=== PATIENT | male | born 1975 | race Caucasian/White ===

== ENCOUNTER 2016-10-27 16:21 | Observation (INO) | payer SELFPAY ==
--- NOTE | ~2016-10-27 | EGD ---
EGD REPORT [facility] [address] [place] [place] [address] NAME: ISHAN SANTO : [birth year] STATUS : ADM Chucky PAT#: [id number] AGE: 41 ADM/REG DATE : 10/27/16 MR#: [id number] REPORT SERV DATE: 10/29/16 DICTATED BY: JUANIS MOHR DATE: 10/29/16 REPORT STATUS : Draft TRANSCRIBED BY: [facility] DATE: 10/29/16 [facility] Center Patient Name: Ishan Santo Date of : 1975 Attending MD: JUANIS MOHR, Procedure Date No Time: 10/29/2016 Procedure: Colonoscopy Indications: Generalized abdominal pain, Rectal bleeding, Follow-up of Crohn's disease, Diarrhea Medicines: Propofol per Anesthesia Complications: No immediate complications. Estimated blood loss: None. Procedure: Pre-Anesthesia Assessment: - ASA Grade Assessment: III - A patient with severe systemic disease. After I obtained informed consent, the scope was passed under direct vision. Throughout the procedure, the patient's blood pressure, pulse, and oxygen saturations were monitored continuously. The CF [id number] was introduced through the anus and advanced to 15 cm into the ileum. The colonoscopy was performed with ease. The patient tolerated the procedure well. The appendiceal orifice, terminal ileum and rectum were photographed. Findings: The perianal exam was abnormal. Findings include skin tags. The terminal ileum appeared normal. Several biopsies were obtained in the distal ileum and in the terminal ileum with cold forceps for histology. Estimated blood loss: none. Inflammation characterized by altered vascularity, congestion (edema), loss of vascularity and aphthous ulcerations was found in a continuous and circumferential pattern from the sigmoid colon to the cecum. This was graded as Mathew Score 1 (mild, with erythema, decreased vascular pattern, mild friability). Biopsies were taken with a cold forceps for histology of the right colon, transverse colon, and left colon and placed in three different bottles. Estimated blood loss: none. Inflammation characterized by congestion (edema), friability, loss of vascularity, mucus and aphthous ulcerations was found in a continuous and circumferential pattern in the rectum. This was graded as Mathew Score 2 (moderate, with marked erythema, absent vascular pattern, friability, erosions). Biopsies were taken with a cold forceps for histology. Estimated blood loss: none. Non-bleeding internal hemorrhoids were found during retroflexion and were Grade I (internal hemorrhoids that do not prolapse). Impression: - Perianal skin tags found on perianal exam. EGD REPORT [address] [place]. [address] NAME: ISHAN SANTO : [birth year] STATUS : ADM Chucky PAT#: [id number] AGE: 41 ADM/REG DATE : 10/27/16 MR#: [id number] REPORT SERV DATE: 10/29/16 DICTATED BY: JUANIS MOHR DATE: 10/29/16 REPORT STATUS : Draft TRANSCRIBED BY: [email or web address] DATE: 10/29/16 - The examined portion of the ileum was normal. - Inflammation was found from the sigmoid colon to the cecum consistent with ulcerative colitis. Biopsied. - Inflammation was found in the rectum consistent with ulcerative colitis. Biopsied. - Non-bleeding internal hemorrhoids. - Several biopsies were obtained distal ileum and terminal ileum. Recommendation: - Return patient to [facility] for ongoing care. - Regular diet. - Use prednisolone 20 mg IV Q 12 hours for 2 days. - Use Rowasa enemas 1 per rectum BID for 2 weeks. - Recommend medication for inflammatory bowel disease- Delzicol 400mg PO Q 6 hours - Await pathology results. - Return to GI clinic in 4 weeks. Procedure Code(s): --- Professional --- 86016, Colonoscopy, flexible, proximal to splenic flexure; with biopsy, single or multiple Diagnosis Code(s): --- Professional --- K64.4, Residual hemorrhoidal skin tags K50.911, Crohn's disease, unspecified, with rectal bleeding K52.9, Noninfective gastroenteritis and colitis, unspecified R10.84, Generalized abdominal pain R19.7, Diarrhea, unspecified CPT copyright 2013 [employer]. All rights reserved. The codes documented in this report are preliminary and upon continuous pickling line pickler review may be revised to meet current compliance requirements. JUANIS MOHR, 10/29/2016 6:35 PM This report has been signed electronically. Number of Addenda: 0 Note Initiated On: 10/29/2016 5:46 PM Scope Withdrawal Time 0 hours 14 minutes 53 seconds [id number] [id number]
--- NOTE | ~2016-10-27 | CN ---
Consultation Report [facility] [address] [place] [place]. [address] NAME: ALEJANDRO SANTO : [birth year] STATUS : ADM Chucky PAT#: [id number] AGE: 41 ADM/REG DATE : 10/27/16 MR#: [id number] REPORT SERV DATE: 10/29/16 DICTATED BY: JUANIS BURGER DATE: 10/29/16 REPORT STATUS : Draft TRANSCRIBED BY: MODL DATE: 10/29/16 GI CONSULTATION DATE OF CONSULTATION: HISTORY OF PRESENT ILLNESS: Mr. Santo is a 41-year-old white male who was incarcerated and diagnosed while in group home with Crohn disease in August. He presented to [facility] with a one- week history of bloody diarrhea and abdominal pain and rectal pain. There are no available records with regard to his colonoscopy which he had while he was incarcerated nor any pathology available. He does bring a piece of paper which says diagnosis of Crohn's and has him on prednisone. He reports that he had been on prednisone for about three weeks and denies any tapering of that medication nor starting any other kind of maintenance medication. He is unaware of the phenotype nor the location of his disease. PAST MEDICAL HISTORY: Crohn's, hypertension. SURGICAL HISTORY: None. SOCIAL HISTORY: Recently incarcerated. Tobacco use. Denies any alcohol or drug use. FAMILY HISTORY: Cirrhosis. MEDICATIONS: Reviewed. ALLERGIES: REVIEWED. PHYSICAL EXAMINATION: VITAL SIGNS: Patient is afebrile. Vital signs are stable. GENERAL: The patient is awake, alert, and oriented x3. Well developed, well nourished. Multiple tattoos. HEENT: Atraumatic, normocephalic. Anicteric. Mucous membranes moist. CARDIAC: S1, S2. CHEST: Clear. ABDOMEN: Soft, tender to palpation diffusely without any rebound or guarding. Bowel sounds normoactive. LABORATORY DATA: Show WBC 8.9, hemoglobin 9.7, hematocrit 31.2, and platelets 325. Sodium 142, potassium 3.7, chloride 110, bicarb 27, BUN 14, creatinine 0.79, glucose 100. Liver enzymes normal. Lipase 3[address] scan showed normal-appearing ileum with thickening in the transverse colon to the mid to distal sigmoid colon. Ultrasound showed incomplete distention of the gallbladder without any stones. No biliary dilatation. Common bile duct was measured to be about 4 mm. The pancreatic tail was obscured, but otherwise the pancreas appeared normal. Consultation Report [address] [place]. [address] NAME: ALEJANDRO SANTO : [birth year] STATUS : ADM Chucky PAT#: [id number] AGE: 41 ADM/REG DATE : 10/27/16 MR#: [id number] REPORT SERV DATE: 10/29/16 DICTATED BY: JUANIS BURGER DATE: 10/29/16 REPORT STATUS : Draft TRANSCRIBED BY: JAVED DATE: 10/29/16 IMPRESSION AND PLAN: 1. Concern for Crohn's without exacerbation. Given the patient's symptoms, we will add ESR and CRP. Unable to obtain his records while he was incarcerated and does not seem that he was on any sort of optimal therapy for his Crohn's, neither with regard to his flare and inducing remission or any kind of maintenance medication. We will add ESR, CRP to his labs, as well as fecal calprotectin and stool studies have been done. We will get him set up for colonoscopy for further evaluation. 2. Acute pancreatitis, unclear etiology. The patient does have a tobacco history, unclear of extent of any kind of alcohol use. No stones or obstruction seen to precipitate this. Clear liquid diet for now and IV fluids and supportive care. We will continue to follow. AKHIL/JAVED Juanis Burger MD / [id number] CC: Gilles Serrano M.D.
--- NOTE | ~2016-10-27 | DS ---
Discharge Summary [facility] [address] [place]. [address] NAME: ALEJANDRO JUÁREZ : 73 STATUS : ADM Chucky PAT#: [id number] AGE: 41 ADM/REG DATE : 10/27/16 MR#: [id number] REPORT SERV DATE: 10/31/16 DICTATED BY: JULIET LOPEZ DATE: 10/31/16 REPORT STATUS : Draft TRANSCRIBED BY: MODL DATE: 10/31/16 ADMISSION DATE: 10/27/2016 DISCHARGE DATE: 10/31/2016 FINAL HOSPITAL DIAGNOSES: 1. Probable ulcerative colitis, biopsies pending. 2. History of hypertension. CONSULTATIONS: GI, Dr. Burger. PROCEDURES: 1. Lower endoscopy. Information was found from the sigmoid colon to the cecum consistent with ulcerative colitis. Inflammation was found in the rectum consistent with ulcerative colitis. Nonbleeding internal hemorrhoids. 2. Gallbladder ultrasound done on 10/28/2016 showing incomplete distention of the gallbladder despite n.p.o. status. Nonvisualization of the tail of the pancreas. Otherwise, negative study. 3. CT scan of the abdomen and pelvis done on 10/27/2016 showing thickened appearance of the transverse colon as well as mid and distal sigmoid colon, although this appearance could be partially due to underdistention. Findings are concerning for colitis given the patient's clinical presentation. No evidence for abscess or perforation. Otherwise, no acute abnormality appreciated within the abdomen or pelvis. CURRENT PHYSICAL FINDINGS AND HPI: Please see dictated H and P by Dr. Pino. In brief, the patient is a 41-year-old male, who presented with abdominal pain and rectal bleeding. Initial vital signs showed a BP of 143/82, the majority of his blood pressures during this hospitalization have been in the 130 to 160 range. He has remained afebrile. LABORATORY DATA: Initial lab work showed a normal BMP. He did have an initial lipase of 33,049, going to 5392, and then 4439 on 10/29/2016; however, he had no findings of pancreatitis either clinically or by CT. Initial white count was 8.7, he did have a rise to 17,000 but this was felt due to his steroids, H and H were in the 10 and 30 range. Sedimentation rate was normal at 8. Urinalysis was unremarkable. UDS was positive for amphetamine. Stool studies were negative for pathogens. Imaging studies were as noted. HOSPITAL COURSE: The patient was admitted. IV fluids were given. Home medications were reviewed. Steroids were started. Reasonable pain medications. Antiemetics were given. GI was consulted. He was prepped for an endoscopy. He was placed on IV steroids. Postprocedure, he was placed on Delzicol and Rowasa enemas. The patient had rapid resolution of his symptoms, was having no uncontrollable bleeding or uncontrolled bowel movements. Pain was greatly decreased. He was felt stable for discharge. His only other complaint or concern was his blood pressure. No home readings to review. We will place him on low-dose enalapril until he can follow up with PCP of choice. He is discharged to follow up with GI per their recommendations. MEDICATIONS: Delzicol 400 q.6, Rowasa enemas two twice a day for two weeks and then one Discharge Summary [address] [address] NAME: ALEJANDRO JUÁREZ : 73 STATUS : ADM Chucky PAT#: [id number] AGE: 41 ADM/REG DATE : 10/27/16 MR#: [id number] REPORT SERV DATE: 10/31/16 DICTATED BY: JULIET LOPEZ DATE: 10/31/16 REPORT STATUS : Draft TRANSCRIBED BY: JAVED DATE: 10/31/16 daily, prednisone 40 mg per day decreased by 5 every week, prescription was also given for hydrocodone 5/325, 16 tabs q.6 p.r.n., and Vasotec 5 #30 one per day. CLIFFORD/JAVED Juliet Lopez M.D. / [id number] CC: Juliet Lopez M.D.
--- NOTE | ~2016-10-27 | HP ---
History And Physical [place] [address] [facility] [place]. [address] NAME: ALEJANDRO JUÁREZ : [birth year] STATUS : ADM Chucky PAT#: [id number] AGE: 41 ADM/REG DATE : 10/27/16 MR#: [id number] REPORT SERV DATE: 10/27/16 DICTATED BY: CHERYL DEL VALLE DATE: 10/27/16 REPORT STATUS : Draft TRANSCRIBED BY: MODL DATE: 10/27/16 DATE OF ADMISSION: 10/27/2016 HISTORY OF PRESENT ILLNESS: This is a 41-year-old gentleman who was recently released from detention. He was released from detention one week ago. He reported that while he was in detention, he had bloody diarrhea and abdominal pain, which was continuously persisting and even continued while he was released from detention. He said when he was in detention, he was diagnosed with Crohn disease and he was placed on oral antibiotic and steroid, which he already completed but he still has symptoms. On further questioning, the patient reported that he had colonoscopy, which was done in detention as well as even a biopsy was done but it is unclear to the patient what was the result of biopsy and he cannot tell the name of the doctor who did his colonoscopy while he was in detention. He said he was in [facility] when he had this colonoscopy and the whole evaluation. I asked the patient and his mother if they have any records or any information to bring tomorrow and present to the doctor or to the nurse when he will be admitted on the floor. The patient reported that he was having pain in the lower abdomen as well as in the bottom area. He said that the diarrhea continues with multiple bowel movement, although he refused to have stool Hemoccult while he was in the emergency room. He denies any chest pain. No shortness of breath. No fever. No rash. No headache. REVIEW OF SYSTEMS: All 14-point review of systems done and negative except what is stated in the history of present illness. He denies left upper quadrant pain. Denies any nausea. PAST MEDICAL HISTORY: He said that he used to have hypertension, for which he used to take enalapril, now not taking anymore. He denies any major surgeries. ALLERGIES: NO KNOWN DRUG ALLERGIES. SOCIAL HISTORY: He is a smoker. He smokes one pack for two days. No alcohol. He denies recreational drug use. He has children, but he is . His mother is sitting at the bedside. FAMILY HISTORY: Mother is healthy. Father of cirrhosis of the liver. MEDICATIONS: Not taking any medications currently. PHYSICAL EXAMINATION: GENERAL: Well-nourished, well-developed male, not in acute distress, resting quietly. VITAL SIGNS: Blood pressure 143/82, temperature 98.7, heart rate 100, respirations 16, oxygen saturation 99% on room air. HEENT: Head atraumatic, normocephalic. Conjunctivae clear. Pupils are equal and reactive to light and accommodation. Extraocular muscles are intact. NECK: Supple. Trachea is midline. No supraclavicular or cervical lymphadenopathy. LUNGS: Clear to auscultation bilaterally. Normal respiratory effort. CARDIOVASCULAR SYSTEM: Regular rate and rhythm. Ocuon-dr-plmzkdp impulse not displaced. ABDOMEN: Soft. There is mild tenderness in the lower abdominal area in the left lower History And Physical [address] [address] NAME: ALEJANDRO JUÁREZ : 73 STATUS : ADM Chucky PAT#: [id number] AGE: 41 ADM/REG DATE : 10/27/16 MR#: [id number] REPORT SERV DATE: 10/27/16 DICTATED BY: CHERYL DEL VALLE DATE: 10/27/16 REPORT STATUS : Draft TRANSCRIBED BY: JAVED DATE: 10/27/16 quadrant, but it is very mild. There is no guarding, no rebound. Completely benign abdominal examination. There is no tenderness in the upper abdominal area. There is no tenderness at all in the left upper quadrant and no tenderness in the right upper quadrant or epigastric area. No organomegaly. EXTREMITIES: No clubbing, cyanosis, or edema. PSYCHIATRIC: Normal mood and affect. NEUROLOGIC: Awake, alert, and oriented to time, place, and person. Muscle strength is 5/5 bilaterally in upper and lower extremities. SKIN: Normal color and turgor. LABORATORY RESULTS: Sodium 143, potassium 3.7, chloride 108, carbon dioxide 29, BUN 17, creatinine 0.9, blood sugar is 87. ALT 16, AST 13. Lipase 3349. White count 8.7, hemoglobin 10.5, hematocrit 34.5, platelet count 350. Urinalysis, no evidence of UTI. CT of the abdomen and pelvis without contrast showed thickened appearance of the transverse colon as well as the mid and distal sigmoid colon. Although this appearance could be partially due to underdistention, findings are concerning for colitis given the patient's clinical presentation. No evidence of abscess. No evidence of any perforation. Otherwise, no other pathology. ASSESSMENT AND PLAN: 1. This is a 41-year-old male who presented with abdominal pain in the lower abdomen as well as in the bottom. 2. Longstanding diarrhea with blood in the stool per the patient's report. 3. Abnormal CT of the abdomen and pelvis, concerning for colitis. 4. Asymptomatic elevation on the lipase. 5. Questionable history of Crohn disease. We will put the patient under observation. He has stable vital signs. We will give him gentle IV fluid hydration and we will check his stool studies for C difficile, for white cells, for stool cultures as well, and we will consult liquor runner on-call, Dr. Tejeda, for further evaluation for possibility of Crohn disease, as well as we will order old records from recent colonoscopy when he was in long term. Asymptomatic elevation on the lipase. We will check ultrasound of the gallbladder and we will check his lipase tomorrow. This is nonspecific enzyme, so we will see if it will come down. Symptomatic control of pain with reasonable amount of pain medicine and monitor closely. My partner will see this patient starting tomorrow morning. Everything was discussed with the patient and his mother. MG/MODL Cheryl History And Physical [address] [address] NAME: ALEJANDRO JUÁREZ : 73 STATUS : ADM Chucky PAT#: [id number] AGE: 41 ADM/REG DATE : 10/27/16 MR#: [id number] REPORT SERV DATE: 10/27/16 DICTATED BY: CHERYL DEL VALLE DATE: 10/27/16 REPORT STATUS : Draft TRANSCRIBED BY: MODL DATE: 10/27/16 Bryan Del Valle / [id number]
[2016-10-27 14:42] LABS: ASCORBIC ACID (UR NOT ORDER) NEG (NEG); BILIRUBIN, URINE NEGATIVE (NEG); ER URINALYSIS TAT 0 Hrs 09 Mins; KETONE, URINE NEGATIVE (NEG); LEUKOCYTE ESTERASE(NOT OR NEG (NEG); NITRITE (URINE) NEG (NEG); WBC (NOT ORDERED) (RFLEX) 2 (0-5)
[2016-10-27 15:18] LABS: BASOPHILS 0.2 %; BASOPHILS ABSOLUTE 0.02 10/3/uL (0.0-0.16); EOSINOPHILS 2.7 %; EOSINOPHILS ABSOLUTE 0.23 10/3/uL (0.0-0.53); HEMATOCRIT 34.2 % (40.0-51.0); HEMOGLOBIN 10.5 g/dL (13.6-17.8); IMMATURE GRANULOCYTES 0.1 %; IMMATURE GRANULOCYTES ABSOLUTE 0.01 10/3/uL (0.0-0.11); LYMPHOCYTES 16.8 %; LYMPHOCYTES ABSOLUTE 1.46 10/3/uL (0.67-4.30); MANUAL DIFF NO %; MEAN CORPUS HGB CONC 30.7 g/dL (32.0-36.0); MEAN CORPUSCULAR HEMOGLOB 22.8 pg (26.0-34.0); MEAN CORPUSCULAR VOLUME 74.2 fL (80-100); MONOCYTES 8.9 %; MONOCYTES ABSOLUTE 0.77 10/3/uL (0.21-1.20); NEUTROPHILS 71.3 %; NEUTROPHILS ABSOLUTE 6.18 10/3/uL (2.02-8.40); PLATELET COUNT 350 10/3/uL (150-400); RBC DISTRIBUTION WIDTH 15.9 % (12.0-16.0); RED CELL COUNT 4.61 10/6/uL (4.7-6.1); WHITE BLOOD CELLS 8.7 10/3/uL (4.5-10.5)
[2016-10-27 15:33] LABS: A/G RATIO 1.2 (0.7-1.9); ALBUMIN 3.7 G/DL (3.5-5.0); ALKALINE PHOSPHATASE 60 U/L (45-117); BUN (BLOOD UREA NITROGEN) 17 MG/DL (6-23); CALCIUM, SERUM 8.9 MG/DL (8.5-10.4); CHLORIDE, SERUM 108 MMOL/L (96-112); CO2 (CARBON DIOXIDE) 29 MMOL/L (24-34); GFR AFRICAN AMERICAN 122 ML/MIN (>=60); GFR NON AFRICAN AMERICAN 105 ML/MIN (>=60); GLOBULIN 3.2 G/DL (2.5-4.1); GLUCOSE, SERUM 87 MG/DL (60-99); POTASSIUM, SERUM 3.7 MMOL/L (3.5-5.3); SGOT(AST) 13 U/L (5-40); SGPT(ALT) 16 U/L (5-65); SODIUM, SERUM 143 MMOL/L (135-148); TOTAL PROTEIN 6.9 G/DL (6.0-8.5)
[2016-10-27] MEDS ORDERED: *DENIES (17:36)
[2016-10-27 21:59] LABS: AMPHETAMINES (NOT ORD) POS (NEG); BARBITURATES (NOT ORDERED NEG (NEG); BENZODIAZEPINES (NOT ORD) NEG (NEG); CANNABINOIDS (THC) NEG (NEG); COCAINE (NOT ORDERED) NEG (NEG); OPIATES NEG (NEG); PHENCYCLIDINE(PCP) NEG (NEG); TRICYCLICS NEG (NEG)
[2016-10-28 06:01] LABS: BASOPHILS 0.5 %; BASOPHILS ABSOLUTE 0.04 10/3/uL (0.0-0.16); EOSINOPHILS 2.3 %; HEMATOCRIT 31.2 % (40.0-51.0); HEMOGLOBIN 9.7 g/dL (13.6-17.8); IMMATURE GRANULOCYTES 0.2 %; IMMATURE GRANULOCYTES ABSOLUTE 0.02 10/3/uL (0.0-0.11); LYMPHOCYTES 22.2 %; LYMPHOCYTES ABSOLUTE 1.97 10/3/uL (0.67-4.30); MEAN CORPUS HGB CONC 31.1 g/dL (32.0-36.0); MEAN CORPUSCULAR HEMOGLOB 23.1 pg (26.0-34.0); MEAN CORPUSCULAR VOLUME 74.3 fL (80-100); MEAN PLATELET VOLUME 10.2 fL (9.2-13.0); MONOCYTES 10.4 %; MONOCYTES ABSOLUTE 0.92 10/3/uL (0.21-1.20); NEUTROPHILS 64.4 %; NEUTROPHILS ABSOLUTE 5.71 10/3/uL (2.02-8.40); PLATELET COUNT 325 10/3/uL (150-400); WHITE BLOOD CELLS 8.9 10/3/uL (4.5-10.5)
[2016-10-28 06:03] LABS: MANUAL DIFF NO %
[2016-10-28 06:14] LABS: ALBUMIN 3.1 G/DL (3.5-5.0); ALKALINE PHOSPHATASE 51 U/L (45-117); BUN (BLOOD UREA NITROGEN) 14 MG/DL (6-23); CALCIUM, SERUM 8.1 MG/DL (8.5-10.4); CHLORIDE, SERUM 110 MMOL/L (96-112); CO2 (CARBON DIOXIDE) 27 MMOL/L (24-34); CREATININE 0.79 MG/DL (0.70-1.30); GFR AFRICAN AMERICAN 128 ML/MIN (>=60); GFR NON AFRICAN AMERICAN 111 ML/MIN (>=60); GLUCOSE, SERUM 100 MG/DL (60-99); POTASSIUM, SERUM 3.7 MMOL/L (3.5-5.3); SGOT(AST) 10 U/L (5-40); SGPT(ALT) 13 U/L (5-65); SODIUM, SERUM 142 MMOL/L (135-148); TOTAL PROTEIN 6.1 G/DL (6.0-8.5)
[2016-10-28 06:15] LABS: TOTAL BILIRUBIN 0.5 MG/DL (0-1.2)
[2016-10-29 05:59] LABS: BASOPHILS 0.6 %; BASOPHILS ABSOLUTE 0.04 10/3/uL (0.0-0.16); EOSINOPHILS 2.9 %; EOSINOPHILS ABSOLUTE 0.19 10/3/uL (0.0-0.53); HEMATOCRIT 29.9 % (40.0-51.0); HEMOGLOBIN 9.4 g/dL (13.6-17.8); IMMATURE GRANULOCYTES 0.2 %; IMMATURE GRANULOCYTES ABSOLUTE 0.01 10/3/uL (0.0-0.11); LYMPHOCYTES 30.4 %; LYMPHOCYTES ABSOLUTE 2.02 10/3/uL (0.67-4.30); MEAN CORPUS HGB CONC 31.4 g/dL (32.0-36.0); MEAN CORPUSCULAR HEMOGLOB 23.4 pg (26.0-34.0); MEAN CORPUSCULAR VOLUME 74.4 fL (80-100); MEAN PLATELET VOLUME 10.7 fL (9.2-13.0); MONOCYTES 11.3 %; MONOCYTES ABSOLUTE 0.75 10/3/uL (0.21-1.20); NEUTROPHILS 54.6 %; NEUTROPHILS ABSOLUTE 3.64 10/3/uL (2.02-8.40); PLATELET COUNT 316 10/3/uL (150-400); RED CELL COUNT 4.02 10/6/uL (4.7-6.1); WHITE BLOOD CELLS 6.7 10/3/uL (4.5-10.5)
[2016-10-29 06:06] LABS: MANUAL DIFF NO %
[2016-10-29 06:19] LABS: A/G RATIO 1.1 (0.7-1.9); ALKALINE PHOSPHATASE 51 U/L (45-117); BUN (BLOOD UREA NITROGEN) 7 MG/DL (6-23); CALCIUM, SERUM 7.9 MG/DL (8.5-10.4); CHLORIDE, SERUM 111 MMOL/L (96-112); CO2 (CARBON DIOXIDE) 29 MMOL/L (24-34); CREATININE 0.81 MG/DL (0.70-1.30); GFR AFRICAN AMERICAN 127 ML/MIN (>=60); GFR NON AFRICAN AMERICAN 110 ML/MIN (>=60); GLOBULIN 2.8 G/DL (2.5-4.1); GLUCOSE, SERUM 97 MG/DL (60-99); SGOT(AST) 8 U/L (5-40); SGPT(ALT) 13 U/L (5-65); SODIUM, SERUM 144 MMOL/L (135-148); TOTAL BILIRUBIN 0.4 MG/DL (0-1.2); TOTAL PROTEIN 5.8 G/DL (6.0-8.5)
[2016-10-31 06:18] LABS: BASOPHILS 0.1 %; BASOPHILS ABSOLUTE 0.01 10/3/uL (0.0-0.16); EOSINOPHILS 0 %; HEMOGLOBIN 10.7 g/dL (13.6-17.8); IMMATURE GRANULOCYTES 0.4 %; IMMATURE GRANULOCYTES ABSOLUTE 0.07 10/3/uL (0.0-0.11); LYMPHOCYTES 5.1 %; LYMPHOCYTES ABSOLUTE 0.87 10/3/uL (0.67-4.30); MEAN CORPUS HGB CONC 31.8 g/dL (32.0-36.0); MEAN CORPUSCULAR HEMOGLOB 23.2 pg (26.0-34.0); MEAN CORPUSCULAR VOLUME 72.7 fL (80-100); MEAN PLATELET VOLUME 9.7 fL (9.2-13.0); MONOCYTES 5.4 %; MONOCYTES ABSOLUTE 0.92 10/3/uL (0.21-1.20); NEUTROPHILS ABSOLUTE 15.16 10/3/uL (2.02-8.40); PLATELET COUNT 406 10/3/uL (150-400); RBC DISTRIBUTION WIDTH 16.7 % (12.0-16.0); RED CELL COUNT 4.62 10/6/uL (4.7-6.1)
[2016-10-31 06:19] LABS: HEMATOCRIT 33.6 % (40.0-51.0); MANUAL DIFF NO %
[2016-10-31] MEDS ORDERED: DELZICOL 400 M400 MG PO (15:53)
[2016-10-31] MEDS ORDERED: MESALAMINE ENEMA PR (15:54)
[2016-10-31] MEDS ORDERED: VASOTEC5 PO (15:56)
[2016-10-31] MEDS ORDERED: STERAPRED DS10 MG (15:56)
[2016-10-31] MEDS ORDERED: NORCO1 TA1 PO (15:57)
== END 2016-10-31 18:27 | disposition home or self-care (01) ==
LOC: ER 16:21 → 4SO 18:43
PROVIDERS: Hospitalist; Internal Medicine; Physician Assistant
PROC: 0DBB8ZX Excision of Ileum, Via Natural or Artificial Opening Endoscopic, Diagnostic (ICD-10-PCS; principal; 2016-10-27)
PROC: 0DBP8ZX Excision of Rectum, Via Natural or Artificial Opening Endoscopic, Diagnostic (ICD-10-PCS; 2016-10-27)
PROC: 0DBF8ZX Excision of Right Large Intestine, Via Natural or Artificial Opening Endoscopic, Diagnostic (ICD-10-PCS; 2016-10-27)
PROC: 0DBG8ZX Excision of Left Large Intestine, Via Natural or Artificial Opening Endoscopic, Diagnostic (ICD-10-PCS; 2016-10-27)
PROC: 0DBL8ZX Excision of Transverse Colon, Via Natural or Artificial Opening Endoscopic, Diagnostic (ICD-10-PCS; 2016-10-27)
DX: K52.9 Noninfective gastroenteritis and colitis, unspecified (principal); K64.0 First degree hemorrhoids; K50.90 Crohn's disease, unspecified, without complications; K85.90 Acute pancreatitis without necrosis or infection, unspecified; I10 Essential (primary) hypertension; F17.210 Nicotine dependence, cigarettes, uncomplicated; Z83.79 Family history of other diseases of the digestive system; Z79.52 Long term (current) use of systemic steroids; Z79.899 Other long term (current) drug therapy
CPT/HCPCS: 74176; 76705; 80053; 80305; 81001; 82150; 82272; 83690; 83735; 83993; 85025; 85652; 86140; 87045; 87046; 87046-59; 87329; 87493; 87493-59; 87899; 87899-59; 88305; 89055; 96374; 96375; 96376; 99285; A9270-GY; G0378; J2405; J2920

== ENCOUNTER 2016-11-07 15:39 | Emergency (ER) | payer SELFPAY ==
[2016-11-07 13:26] LABS: BASOPHILS 0.2 %; BASOPHILS ABSOLUTE 0.03 10/3/uL (0.0-0.16); EOSINOPHILS 1.4 %; EOSINOPHILS ABSOLUTE 0.19 10/3/uL (0.0-0.53); ER CBC TAT 0 Hrs 07 Mins; HEMATOCRIT 33.2 % (40.0-51.0); HEMOGLOBIN 10.3 g/dL (13.6-17.8); IMMATURE GRANULOCYTES 0.4 %; IMMATURE GRANULOCYTES ABSOLUTE 0.06 10/3/uL (0.0-0.11); LYMPHOCYTES 31.6 %; MANUAL DIFF NO %; MEAN CORPUSCULAR HEMOGLOB 22.8 pg (26.0-34.0); MEAN CORPUSCULAR VOLUME 73.5 fL (80-100); MEAN PLATELET VOLUME 10.2 fL (9.2-13.0); MONOCYTES ABSOLUTE 1.36 10/3/uL (0.21-1.20); NEUTROPHILS 56.4 %; NEUTROPHILS ABSOLUTE 7.66 10/3/uL (2.02-8.40); PLATELET COUNT 391 10/3/uL (150-400); RBC DISTRIBUTION WIDTH 16.7 % (12.0-16.0); RED CELL COUNT 4.52 10/6/uL (4.7-6.1); WHITE BLOOD CELLS 13.6 10/3/uL (4.5-10.5)
[2016-11-07 13:42] LABS: ALKALINE PHOSPHATASE 60 U/L (45-117); C-REACTIVE PROTEIN ULTRAQUANT 5.1 MG/L (<3.0); CHLORIDE, SERUM 105 MMOL/L (96-112); CO2 (CARBON DIOXIDE) 31 MMOL/L (24-34); GFR AFRICAN AMERICAN 95 ML/MIN (>=60); GFR NON AFRICAN AMERICAN 82 ML/MIN (>=60); POTASSIUM, SERUM 3.3 MMOL/L (3.5-5.3); SGOT(AST) 20 U/L (5-40); SGPT(ALT) 22 U/L (5-65); SODIUM, SERUM 142 MMOL/L (135-148); TOTAL BILIRUBIN 0.8 MG/DL (0-1.2)
[2016-11-07 13:43] LABS: A/G RATIO 1.2 (0.7-1.9); ALBUMIN 3.9 G/DL (3.5-5.0); BUN (BLOOD UREA NITROGEN) 21 MG/DL (6-23); CALCIUM, SERUM 9.8 MG/DL (8.5-10.4); GLOBULIN 3.3 G/DL (2.5-4.1); GLUCOSE, SERUM 56 MG/DL (60-99); TOTAL PROTEIN 7.2 G/DL (6.0-8.5)
[2016-11-07 14:12] LABS: ASCORBIC ACID (UR NOT ORDER) NEG (NEG); BILIRUBIN, URINE NEGATIVE (NEG); ER URINALYSIS TAT 0 Hrs 16 Mins; KETONE, URINE NEGATIVE (NEG); LEUKOCYTE ESTERASE(NOT OR NEG (NEG); NITRITE (URINE) NEG (NEG); WBC (NOT ORDERED) (RFLEX) 1 (0-5)
[~2016-11-07 15:39] MED LIST: *DENIES; DELZICOL 400 M400 MG PO; MESALAMINE ENEMA PR; NORCO1 TA1 PO; STERAPRED DS10 MG; VASOTEC5 PO
== END 2016-11-07 15:45 | disposition home or self-care (01) ==
LOC: ER 15:39
PROVIDERS: Nurse Practitioner Acute Care
DX: K51.90 Ulcerative colitis, unspecified, without complications (principal); I10 Essential (primary) hypertension; F17.200 Nicotine dependence, unspecified, uncomplicated; Z79.52 Long term (current) use of systemic steroids; Z79.899 Other long term (current) drug therapy
CPT/HCPCS: 80053; 81001; 83690; 85025; 85652; 86141; 96374; 99284; J1170; J2405